=== PATIENT | male | born 1990 | race Caucasian/White ===

== ENCOUNTER 2018-02-01 14:52 | Emergency (ER) | payer OTHER, SELFPAY ==
[2018-02-01 15:42] LABS: Absolute Lymphocytes (CBC) 1.4 K/uL (0.7-4.9); Absolute Monocytes 0.4 K/uL (0.1-1.3); Absolute Neutrophil 5.8 K/uL (1.8-8.0); Basophils % 0.4 % (0-1.3); Eosinophils % 3.1 % (0-4.4); Hematocrit 41.2 % (39.6-49.0); Lymphocytes % 17.6 % (15.3-44.8); MCH 30.7 pg (27.0-35.0); MCV 89.7 fL (80-100); MPV 7.9 fL (7.6-11.3); RBC Red Blood Cell Count 4.59 M/uL (4.33-5.43)
[2018-02-01 15:56] LABS: ALT/SGPT 18 U/L (12-78); AST/SGOT 15 U/L (15-37); Albumin 3.7 g/dL (3.4-5.0); Alkaline Phosphatase 45 U/L (45-117); BUN Blood Urea Nitrogen 8 mg/dL (7-18); Bicarbonate 33 mmol/L (21-32); Bilirubin Direct < 0.1 mg/dL (0-0.2); Bilirubin Total 0.3 mg/dL (0.2-1.0); Glucose Level 89 mg/dL (74-106); Protein, Total 7.8 g/dL (6.4-8.2); Sodium Level 140 mmol/L (136-145)
--- NOTE | 2018-02-01 16:22 | ER ---
Nurse's Notes [facility] Name: Bipin Rubio Age: 27 yrs Sex: Male : 1990 Arrival Date: 02/01/2018 Time: 14:55 Bed 7 Private MD: Diagnosis: Chest pain, unspecified Presentation: 02/01 14:58 Presenting complaint: Patient states: I think my blood is bad, its causing it to hurt, sg c/o pain on the left side, reports does not radiate, reports it is not chest pain its my heart. Transition of care: patient was not received from another setting of care. Onset of symptoms was February 01, 2018. Risk Assessment: Do you want to hurt yourself or someone else? Patient reports no desire to harm self or others. Initial Sepsis Screen: Does the patient meet any 2 criteria? No. Patient's initial sepsis screen is negative. Does the patient have a suspected source of infection? No. Patient's initial sepsis screen is negative. Care prior to arrival: None. 14:58 Acuity: ROXANNE 3 sg 14:58 Method Of Arrival: Ambulatory sg Historical: - Allergies: 15:01 No Known Allergies; sg - Home Meds: 15:01 Depakote Oral [Active]; sg - PMHx: 15:01 Seizures; sg - PSHx: 15:01 None; sg - Immunization history:: Adult Immunizations not up to date. - Social history:: Smoking status: Patient/guardian denies using tobacco. - Ebola Screening: : Patient negative for fever greater than or equal to 101.5 degrees Fahrenheit, and additional compatible Ebola Virus Disease symptoms Patient denies exposure to infectious person Patient denies travel to an Ebola-affected area in the 21 days before illness onset No symptoms or risks identified at this time. Screenin:57 Abuse screen: Denies threats or abuse. Denies injuries from another. Nutritional ph screening: No deficits noted. Tuberculosis screening: No symptoms or risk factors identified. Fall Risk None identified. Assessment: 15:58 General: Appears in no apparent distress. comfortable, slender, Behavior is calm, ph cooperative, appropriate for age. Pain: Complains of pain in anterior aspect of left upper chest Pain does not radiate. Neuro: Level of Consciousness is awake, alert, obeys commands, Oriented to person, place, time, situation. Cardiovascular: Reports chest pain, nausea, shortness of breath, Denies palpitations, syncope, vomiting, Capillary refill < 3 seconds Patient's skin is warm and dry. Rhythm is regular. Respiratory: Airway is patent Respiratory effort is even, unlabored, Respiratory pattern is regular, symmetrical. GI: Reports nausea, Patient currently denies abdominal pain, diarrhea, vomiting. Derm: Skin is intact, is healthy with good turgor, Skin is pink, warm \T\ dry. Musculoskeletal: Circulation, motion, and sensation intact. Range of motion: limited in all extremities. Vital Signs: 15:00 BP 121 / 69; Pulse 55; Resp 17; Temp 99.0; Pulse Ox 99% on R/A; Weight 81.65 kg (R); sg Pain 10/10; 16:00 BP 124 / 78; Pulse 61; Resp 16; Pulse Ox 100% on R/A; ph ED Course: 14:55 Patient arrived in ED. sb2 14:58 Arm band placed on. sg 15:00 Triage completed. sg 15:08 Vijay Portillo NP is PHCP. pm1 15:08 Kailash Benavides MD is Attending Physician. pm1 15:20 Initial lab(s) drawn, by nc, sent to lab. Inserted saline lock: 20 gauge in right ph antecubital area, using aseptic technique. Blood collected. 15:30 EKG done, by geotechnical laboratory technician. reviewed by Vijay Portillo NP. sm3 15:38 X-ray completed. Portable x-ray completed in exam room. Patient tolerated procedure kp1 well. 15:39 XRAY Chest (1 view) In Process Unspecified. EDMS 15:57 Savanah Kimble, RN is Primary Nurse. ph 15:57 Patient has correct armband on for positive identification. Bed in low position. Call light in reach. Side rails up X 1. Pulse ox on. NIBP on. Warm blanket given. 17:39 No provider procedures requiring assistance completed. IV discontinued, intact, ss bleeding controlled, No redness/swelling at site. Pressure dressing applied. Administered Medications: No medications were administered Outcome: 16:21 Discharge ordered by . pm1 17:39 Discharged to home ambulatory. ss 17:39 Condition: good 17:39 Discharge instructions given to patient, Instructed on discharge instructions, follow up and referral plans. medication usage, Demonstrated understanding of instructions, follow-up care, medications. 17:40 Patient left the ED. ss Signatures: Dispatcher [employer] EDMS Seth Bella RN Nunu Barnes RN RN ss Hall, Patricia, RN RN Vijay Rivera, HOSPITAL SOCIAL WORKER HOSPITAL SOCIAL WORKER pm1 Brisa Vega kp1 Faith Nolasco sb2 Claudia Coto sm3
--- NOTE | 2018-02-01 16:22 | EDPHYS ---
Physician Documentation [facility] Name: Bipin Rubio Age: 27 yrs Sex: Male : 1990 Arrival Date: 02/01/2018 Time: 14:55 Bed 7 Private MD: ED Physician Kailash Benavides HPI: 02/01 15:29 This 27 yrs old Male presents to ER via Ambulatory with complaints of chest pm1 pain. 15:29 The patient or guardian reports chest pain that is located primarily in the anterior pm1 aspect of left upper chest. The pain does not radiate. Associated signs and symptoms: Pertinent positives: cough, Pertinent negatives: abdominal pain, diaphoresis, dizziness, headache, lower extremity pain, lower extremity swelling, lightheadedness, nausea, palpitations, shortness of breath, syncope, vomiting, Fever. The chest pain is described as aching. Modifying factors: The symptoms are alleviated by nothing. the symptoms are aggravated by nothing. The patient has experienced similar episodes in the past, chest pain ongoing for greater than 1 year. The patient has not recently seen a physician. Historical: - Allergies: 15:01 No Known Allergies; sg - Home Meds: 15:01 Depakote Oral [Active]; sg - PMHx: 15:01 Seizures; sg - PSHx: 15:01 None; sg - Immunization history:: Adult Immunizations not up to date. - Social history:: Smoking status: Patient/guardian denies using tobacco. - Ebola Screening: : Patient negative for fever greater than or equal to 101.5 degrees Fahrenheit, and additional compatible Ebola Virus Disease symptoms Patient denies exposure to infectious person Patient denies travel to an Ebola-affected area in the 21 days before illness onset No symptoms or risks identified at this time. ROS: 15:29 Constitutional: Negative for fever, chills, and weight loss, Eyes: Negative for injury, pm1 pain, redness, and discharge, ENT: Negative for injury, pain, and discharge, Neck: Negative for injury, pain, and swelling. 15:29 Respiratory: Negative for shortness of breath, cough, wheezing, and pleuritic chest pain, Abdomen/GI: Negative for abdominal pain, nausea, vomiting, diarrhea, and constipation, Back: Negative for injury and pain, MS/Extremity: Negative for injury and deformity, Skin: Negative for injury, rash, and discoloration, Neuro: Negative for headache, weakness, numbness, tingling, and seizure. 15:29 Cardiovascular: Positive for chest pain, Negative for edema, orthopnea, palpitations. 15:29 Psych: Positive for insomnia, Negative for anxiety, depression. pm1 Exam: 15:29 Constitutional: This is a well developed, well nourished patient who is awake, alert, pm1 and in no acute distress. Head/Face: Normocephalic, atraumatic. Eyes: Pupils equal round and reactive to light, extra-ocular motions intact. Lids and lashes normal. Conjunctiva and sclera are non-icteric and not injected. Cornea within normal limits. Periorbital areas with no swelling, redness, or edema. ENT: Nares patent. No nasal discharge, no septal abnormalities noted. Tympanic membranes are normal and external auditory canals are clear. Oropharynx with no redness, swelling, or masses, exudates, or evidence of obstruction, uvula midline. Mucous membranes moist. Neck: Trachea midline, no thyromegaly or masses palpated, and no cervical lymphadenopathy. Supple, full range of motion without nuchal rigidity, or vertebral point tenderness. No Meningismus. Chest/axilla: Normal chest wall appearance and motion. Nontender with no deformity. No lesions are appreciated. Cardiovascular: Regular rate and rhythm with a normal S1 and S2. No gallops, murmurs, or rubs. Normal PMI, no JVD. No pulse deficits. 15:29 Respiratory: Lungs have equal breath sounds bilaterally, clear to auscultation and percussion. No rales, rhonchi or wheezes noted. No increased work of breathing, no retractions or nasal flaring. Abdomen/GI: Soft, non-tender, with normal bowel sounds. No distension or tympany. No guarding or rebound. No evidence of tenderness throughout. Back: No spinal tenderness. No costovertebral tenderness. Full range of motion. Skin: Warm, dry with normal turgor. Normal color with no rashes, no lesions, and no evidence of cellulitis. MS/ Extremity: Pulses equal, no cyanosis. Neurovascular intact. Full, normal range of motion. 15:29 sinus bradycardia, sinus arrythmia 15:29 Neuro: Orientation: is normal, Motor: is normal. Vital Signs: 15:00 BP 121 / 69; Pulse 55; Resp 17; Temp 99.0; Pulse Ox 99% on R/A; Weight 81.65 kg (R); sg Pain 10/10; 16:00 BP 124 / 78; Pulse 61; Resp 16; Pulse Ox 100% on R/A; ph MDM: 15:09 Patient medically screened. pm1 15:29 Data reviewed: vital signs. Data interpreted: Pulse oximetry: on room air is 99 %. pm1 Interpretation: normal. 16:20 Counseling: I had a detailed discussion with the patient and/or guardian regarding: the pm1 historical points, exam findings, and any diagnostic results supporting the discharge/admit diagnosis, lab results, radiology results, the need for outpatient follow up, to return to the emergency department if symptoms worsen or persist or if there are any questions or concerns that arise at home. 02/01 15:18 Order name: Basic Metabolic Panel; Complete Time: 16:19 pm1 02/01 15:18 Order name: CBC with Diff; Complete Time: 16:19 pm1 02/01 15:18 Order name: LFT's; Complete Time: 16:19 pm1 02/01 15:18 Order name: Troponin (emerg Dept Use Only); Complete Time: 16:19 pm1 02/01 15:38 Order name: Urine Dipstick--Ancillary (enter results) em1 02/01 15:38 Order name: Urine Dipstick-Ancillary; Complete Time: 19:20 EDMS 02/01 15:18 Order name: XRAY Chest (1 view); Complete Time: 19:20 pm1 02/01 15:18 Order name: EKG; Complete Time: 15:19 pm1 02/01 15:18 Order name: Cardiac monitoring; Complete Time: 16:45 pm1 02/01 15:18 Order name: EKG - Nurse/Tech; Complete Time: 16:45 pm1 02/01 15:18 Order name: IV Saline Lock; Complete Time: 16:45 pm1 02/01 15:18 Order name: Labs collected and sent; Complete Time: 16:45 pm1 02/01 15:18 Order name: O2 Per Protocol; Complete Time: 16:45 pm1 02/01 15:18 Order name: O2 Sat Monitoring; Complete Time: 16:45 pm1 Administered Medications: No medications were administered Disposition: 18:33 Co-signature as Attending Physician, Kailash Benavides MD. rn Disposition: 02/01/18 16:21 Discharged to Home. Impression: Chest pain, unspecified. - Condition is Stable. - Discharge Instructions: Nonspecific Chest Pain. - Medication Reconciliation Form, Thank You Letter form. - Follow up: Emergency Department; When: As needed; Reason: Worsening of condition. Follow up: Private Physician; When: 2 - 3 days; Reason: Recheck today's complaints, Continuance of care, Re-evaluation by your physician. - Problem is new. - Symptoms have improved. Signatures: Dispatcher [employer] EDMS Seth Bella RN RN Kailash Benavides MD MD rn Smirch, Shelby, RN RN ss Vijay Portillo, [employer] DIRECTOR pm1 Corrections: (The following items were deleted from the chart) 17:40 16:21 02/01/2018 16:21 Discharged to Home. Impression: Chest pain, unspecified. ss Condition is Stable. Forms are Medication Reconciliation Form, Thank You Letter, Antibiotic Education, Prescription Opioid Use. Follow up: Emergency Department; When: As needed; Reason: Worsening of condition. Follow up: Private Physician; When: 2 - 3 days; Reason: Recheck today's complaints, Continuance of care, Re-evaluation by your physician. Problem is new. Symptoms have improved. pm1
[2018-02-01 17:19] LABS: Urine Blood NEGATIVE (NEG); Urine Glucose NEGATIVE (NEG); Urine Protein NEGATIVE (NEG)
--- NOTE | 2018-02-01 17:42 | RAD REPORT ---
EXAM DESCRIPTION: RAD - Chest Single View - 02/01/2018 3:43 pm CLINICAL HISTORY: Chest pain COMPARISON: None. TECHNIQUE: AP portable chest image was obtained 1530 hours . FINDINGS: Lungs are clear. Heart and vasculature are normal. No measurable pleural effusion and no p neumothorax. No gross bony abnormality seen. No acute aortic findings suspected. IMPRESSION: No acute cardiopulmonary process.
--- NOTE | 2018-02-01 18:44 | EKG ---
Test Date: 2018-02-01 Test Time: 15:24:36 Lead Miner Blasting: LETA MEASUREMENT RESULTS: Intervals: Rate: 55 NJ: 170 QRSD: 100 QT: 416 QTc: 397 [place]: P: 60 NJ: 170 QRS: 67 T: 54 INTERPRETIVE STATEMENTS: Sinus bradycardia with sinus arrhythmia Otherwise normal ECG No previous ECG available for comparison Electronically Signed On 02-01-18 18:43:02 CDT by Lorenzo Farooq
== END 2018-02-01 17:40 | disposition home or self-care (01) ==
LOC: ER 14:52
DX: R07.9 Chest pain, unspecified (principal)
CPT/HCPCS: 36415; 71045; 80048; 80076; 81003; 84484; 85025; 93005; 99284

== ENCOUNTER 2018-02-03 15:46 | Emergency (ER) | payer OTHER, SELFPAY ==
[2018-02-03 16:14] LABS: Absolute Lymphocytes (CBC) 1.5 K/uL (0.7-4.9); Absolute Monocytes 0.6 K/uL (0.1-1.3); Absolute Neutrophil 5.5 K/uL (1.8-8.0); Basophils % 0.6 % (0-1.3); Eosinophils % 4.4 % (0-4.4); Hematocrit 42.2 % (39.6-49.0); MCV 88.8 fL (80-100); MPV 7.7 fL (7.6-11.3); Monocytes % 7.1 % (3.3-12.3); RBC Red Blood Cell Count 4.75 M/uL (4.33-5.43)
[2018-02-03 16:34] LABS: BUN Blood Urea Nitrogen 11 mg/dL (7-18); Bicarbonate 31 mmol/L (21-32); Glucose Level 123 mg/dL (74-106); Potassium 3.8 mmol/L (3.5-5.1); Sodium Level 141 mmol/L (136-145)
--- NOTE | 2018-02-03 16:46 | RAD REPORT ---
EXAM DESCRIPTION: [place] Single View02/03/2018 4:34 pm CLINICAL HISTORY: Chest pain COMPARISON: February 01 2018 FINDINGS: The lungs appear clear of acute infiltrate. The heart is normal size IMPRESSION: No acute abnormalities displayed
--- NOTE | 2018-02-03 16:49 | ER ---
Nurse's Notes [facility] Name: Bipin Rubio Age: 27 yrs Sex: Male : 1990 Arrival Date: 02/03/2018 Time: 15:49 Bed 14 Private MD: None, None Diagnosis: Chest pain, unspecified Presentation: 02/03 15:51 Presenting complaint: Patient states: earlier today, i felt pain on my chest, it was hj pounding; denies SOB; reports sharp pain 6/10; denies nausea and vomiting; non radiating pain;. Transition of care: patient was not received from another setting of care. Onset of symptoms was February 03, 2018. Risk Assessment: Do you want to hurt yourself or someone else? Patient reports no desire to harm self or others. Initial Sepsis Screen: Does the patient meet any 2 criteria? No. Patient's initial sepsis screen is negative. Does the patient have a suspected source of infection? No. Patient's initial sepsis screen is negative. Care prior to arrival: None. 15:51 Method Of Arrival: Ambulatory 15:51 Acuity: ROXANNE 3 hj Triage Assessment: 15:54 General: Appears in no apparent distress. uncomfortable, Behavior is calm, cooperative, hj appropriate for age. Pain: Complains of pain in chest. Cardiovascular: Capillary refill < 3 seconds Patient's skin is warm and dry. Historical: - Allergies: 15:53 No Known Allergies; hj - Home Meds: 15:53 Depakote Oral [Active]; hj - PMHx: 15:53 Seizures; hj - PSHx: 15:53 None; hj - Immunization history:: Adult Immunizations unknown. - Social history:: Smoking status: Patient uses tobacco products, smokes one pack cigarettes per day. Patient/guardian denies using alcohol. - Ebola Screening: : Patient negative for fever greater than or equal to 101.5 degrees Fahrenheit, and additional compatible Ebola Virus Disease symptoms Patient denies exposure to infectious person Patient denies travel to an Ebola-affected area in the 21 days before illness onset. Screenin:54 Abuse screen: Denies threats or abuse. Denies injuries from another. Nutritional hj screening: No deficits noted. Tuberculosis screening: No symptoms or risk factors identified. Fall Risk None identified. Assessment: 15:54 Pain: Pain does not radiate. Pain began 4 hours ago. hj 16:01 General: Appears in no apparent distress. slender, unkempt, Behavior is calm, tl3 cooperative, appropriate for age. Pain: Complains of pain in chest. Neuro: Level of Consciousness is awake, alert, obeys commands, confused, Oriented to person, place, time, situation, Appropriate for age. Cardiovascular: Reports he was seen here on the 5th and was told to follow up n two to three days, today makes two days and he is still having intermittent pain. Respiratory: Airway is patent Respiratory effort is even, unlabored, Respiratory pattern is regular, symmetrical. GI: No signs and/or symptoms were reported involving the gastrointestinal system. : No signs and/or symptoms were reported regarding the genitourinary system. EENT: No signs and/or symptoms were reported regarding the EENT system. 16:56 Reassessment: Patient appears in no apparent distress at this time. No changes from tl3 previously documented assessment. Patient and/or family updated on plan of care and expected duration. Pain level reassessed. Patient is alert, oriented x 3, equal unlabored respirations, skin warm/dry/pink. Vital Signs: 15:55 BP 123 / 82; Pulse 80; Resp 18; Temp 98.1(O); Pulse Ox 99% on R/A; Weight 77.11 kg; hj Height 6 ft. 2 in. (187.96 cm); Pain 6/10; 16:01 BP 120 / 78; Pulse 90; Resp 18; Pulse Ox 100% ; tl3 16:56 BP 116 / 73; Pulse 52; Resp 18; Pulse Ox 97% on R/A; tl3 15:55 Body Mass Index 21.83 (77.11 kg, 187.96 cm) ED Course: 15:49 Patient arrived in ED. mr 15:49 None, None is Private Physician. mr 15:53 Triage completed. hj 15:54 Arm band placed on left wrist. hj 15:54 print finishing worker on. Pulse ox on. NIBP on. hj 15:54 Patient maintains SpO2 saturation greater than 95% on room air. hj 15:56 Vijay Portillo NP is PHCP. pm1 15:56 Romain Matson MD is Attending Physician. pm1 15:56 Patient has correct armband on for positive identification. Placed in gown. Bed in low hj position. Call light in reach. Side rails up X 1. 15:59 Coby Rm, RN is Primary Nurse. tl3 16:01 Resting quietly. tl3 16:01 No provider procedures requiring assistance completed. Inserted saline lock: 20 gauge tl3 in right forearm, using aseptic technique. 16:20 Basic Metabolic Panel Sent. tl3 16:35 XRAY Chest (1 view) In Process Unspecified. EDMS 16:56 IV discontinued, intact, bleeding controlled, No redness/swelling at site. Pressure tl3 dressing applied. Administered Medications: No medications were administered Outcome: 16:48 Discharge ordered by MD. pm1 16:56 Discharged to home ambulatory. tl3 16:56 Condition: good 16:56 Discharge instructions given to patient, Instructed on discharge instructions, follow up and referral plans. Demonstrated understanding of instructions, follow-up care. 16:58 Patient left the ED. tl3 Signatures: Dispatcher [employer] EDAZ Jade Haider Henry, RN RN Vijay Portillo, TELE GROUT SEWER LINE REPAIRER TELE GROUT SEWER LINE REPAIRER pm1 Coby Rm, RN RN tl3 Corrections: (The following items were deleted from the chart) 15:56 15:55 Pulse 80bpm; Resp 18bpm; Pulse Ox 99% RA; Temp 98.1F Oral; 77.11 kg; Height 6 ft. hj 2 in.; BMI: 21.8; Pain 6/10; hj
--- NOTE | 2018-02-03 16:49 | EDPHYS ---
Physician Documentation [facility] Name: Bipin Rubio Age: 27 yrs Sex: Male : 1990 Arrival Date: 02/03/2018 Time: 15:49 Bed 14 Private MD: None, None ED Physician Romain Matson HPI: 02/03 16:10 This 27 yrs old Male presents to ER via Ambulatory with complaints of Chest pm1 Pain. 16:10 The patient or guardian reports chest pain that is located primarily in the anterior pm1 aspect of left upper chest. The pain does not radiate. Associated signs and symptoms: Pertinent positives: cough, Pertinent negatives: abdominal pain, diaphoresis, dizziness, headache, lightheadedness, nausea, shortness of breath, vomiting. The chest pain is described as aching. Duration: The patient or guardian reports a single episode, that is now resolved, onset and resolution 4 hours ago. Patient reports daily chest pain for the past 1 year. Modifying factors: The symptoms are alleviated by nothing. the symptoms are aggravated by nothing. Severity of pain: in the emergency department the pain has resolved. The patient has been recently seen at the [facility] Emergency Department, 2 days ago for the same complaint. Discharged home. Historical: - Allergies: 15:53 No Known Allergies; hj - Home Meds: 15:53 Depakote Oral [Active]; hj - PMHx: 15:53 Seizures; hj - PSHx: 15:53 None; hj - Immunization history:: Adult Immunizations unknown. - Social history:: Smoking status: Patient uses tobacco products, smokes one pack cigarettes per day. Patient/guardian denies using alcohol. - Ebola Screening: : Patient negative for fever greater than or equal to 101.5 degrees Fahrenheit, and additional compatible Ebola Virus Disease symptoms Patient denies exposure to infectious person Patient denies travel to an Ebola-affected area in the 21 days before illness onset. ROS: 16:10 Constitutional: Negative for fever, chills, and weight loss, Eyes: Negative for injury, pm1 pain, redness, and discharge, ENT: Negative for injury, pain, and discharge, Neck: Negative for injury, pain, and swelling. 16:10 Abdomen/GI: Negative for abdominal pain, nausea, vomiting, diarrhea, and constipation, Back: Negative for injury and pain, : Negative for injury, bleeding, discharge, and swelling, MS/Extremity: Negative for injury and deformity, Skin: Negative for injury, rash, and discoloration, Neuro: Negative for headache, weakness, numbness, tingling, and seizure. 16:10 Cardiovascular: Positive for chest pain, Negative for edema, orthopnea. 16:10 Respiratory: Positive for cough, Negative for shortness of breath, sputum production, wheezing. Exam: 16:10 Head/Face: Normocephalic, atraumatic. Eyes: Pupils equal round and reactive to light, pm1 extra-ocular motions intact. Lids and lashes normal. Conjunctiva and sclera are non-icteric and not injected. Cornea within normal limits. Periorbital areas with no swelling, redness, or edema. ENT: Nares patent. No nasal discharge, no septal abnormalities noted. Tympanic membranes are normal and external auditory canals are clear. Oropharynx with no redness, swelling, or masses, exudates, or evidence of obstruction, uvula midline. Mucous membranes moist. Neck: Trachea midline, no thyromegaly or masses palpated, and no cervical lymphadenopathy. Supple, full range of motion without nuchal rigidity, or vertebral point tenderness. No Meningismus. Chest/axilla: Normal chest wall appearance and motion. Nontender with no deformity. No lesions are appreciated. Cardiovascular: Regular rate and rhythm with a normal S1 and S2. No gallops, murmurs, or rubs. Normal PMI, no JVD. No pulse deficits. Respiratory: Lungs have equal breath sounds bilaterally, clear to auscultation and percussion. No rales, rhonchi or wheezes noted. No increased work of breathing, no retractions or nasal flaring. Abdomen/GI: Soft, non-tender, with normal bowel sounds. No distension or tympany. No guarding or rebound. No evidence of tenderness throughout. Back: No spinal tenderness. No costovertebral tenderness. Full range of motion. Skin: Warm, dry with normal turgor. Normal color with no rashes, no lesions, and no evidence of cellulitis. MS/ Extremity: Pulses equal, no cyanosis. Neurovascular intact. Full, normal range of motion. 16:10 Constitutional: The patient appears in no acute distress, alert, awake, comfortable, non-diaphoretic, non-toxic, well developed, well hydrated, well nourished, unkempt. 16:10 Neuro: Orientation: is normal, Motor: strength is normal, strength is 5/5 in all extremities, Gait: is steady, at a normal pace, without difficulty. Vital Signs: 15:55 BP 123 / 82; Pulse 80; Resp 18; Temp 98.1(O); Pulse Ox 99% on R/A; Weight 77.11 kg; hj Height 6 ft. 2 in. (187.96 cm); Pain 6/10; 16:01 BP 120 / 78; Pulse 90; Resp 18; Pulse Ox 100% ; tl3 16:56 BP 116 / 73; Pulse 52; Resp 18; Pulse Ox 97% on R/A; tl3 15:55 Body Mass Index 21.83 (77.11 kg, 187.96 cm) hj MDM: 15:57 Patient medically screened. [facility] 16:47 Data reviewed: vital signs. Data interpreted: Pulse oximetry: on room air is 100 %. pm1 Interpretation: normal. Counseling: I had a detailed discussion with the patient and/or guardian regarding: the historical points, exam findings, and any diagnostic results supporting the discharge/admit diagnosis, lab results, radiology results, the need for outpatient follow up, to return to the emergency department if symptoms worsen or persist or if there are any questions or concerns that arise at home. 16:47 PHILIP Risk Score: TOTAL SCORE = 0. pm1 02/03 16:04 Order name: Basic Metabolic Panel pm1 02/03 16:04 Order name: CBC with Diff; Complete Time: 16:47 pm1 02/03 16:04 Order name: Troponin (emerg Dept Use Only); Complete Time: 16:47 pm1 02/03 16:04 Order name: XRAY Chest (1 view); Complete Time: 16:47 pm1 07 16:04 Order name: EKG; Complete Time: 16:05 pm1 02/03 16:05 Order name: Basic Metabolic Panel; Complete Time: 16:47 EDMS 02/03 16:04 Order name: EKG - Nurse/Tech; Complete Time: 16:06 pm1 02/03 16:04 Order name: IV Saline Lock; Complete Time: 16:06 pm1 02/03 16:04 Order name: Labs collected and sent; Complete Time: 16:06 pm1 Administered Medications: No medications were administered Disposition: 02/03/18 16:48 Discharged to Home. Impression: Chest pain, unspecified. - Condition is Stable. - Discharge Instructions: Nonspecific Chest Pain. - Medication Reconciliation Form, Thank You Letter form. - Follow up: Emergency Department; When: As needed; Reason: Worsening of condition. Follow up: Private Physician; When: 5 - 6 days; Reason: Recheck today's complaints, Continuance of care, Re-evaluation by your physician. - Problem is new. - Symptoms have improved. Addendum: 02/05/2018 09:21 Co-signature as Attending Physician, Romain Matson MD I agree with the assessment and c gauthier plan of care. Signatures: Dispatcher [employer] EDNC Romain Matson MD MD cha Joaquin, Henry, RN RN hj Vijay Portillo, BOILING HOUSE HAND BOILING HOUSE HAND pm1 Coby Rm RN RN tl3 Corrections: (The following items were deleted from the chart) 02/03 16:58 16:48 02/03/2018 16:48 Discharged to Home. Impression: Chest pain, unspecified. tl3 Condition is Stable. Forms are Medication Reconciliation Form, Thank You Letter, Antibiotic Education, Prescription Opioid Use. Follow up: Emergency Department; When: As needed; Reason: Worsening of condition. Follow up: Private Physician; When: 5 - 6 days; Reason: Recheck today's complaints, Continuance of care, Re-evaluation by your physician. Problem is new. Symptoms have improved. pm1
--- NOTE | 2018-02-04 10:55 | EKG ---
Test Date: 2018-02-03 Test Time: 16:01:51 Manager Oncology: MG MEASUREMENT RESULTS: Intervals: Rate: 67 [place]: 162 QRSD: 106 QT: 404 QTc: 426 Spencer: P: 57 [place]: 162 QRS: 59 T: 45 INTERPRETIVE STATEMENTS: Normal sinus rhythm Incomplete right bundle branch block Borderline ECG Compared to ECG 02/01/2018 15:24:36 Sinus bradycardia no longer present Electronically Signed On 02-04-18 10:55:19 CDT by Lorenzo Farooq
== END 2018-02-03 16:58 | disposition home or self-care (01) ==
LOC: ER 15:46
DX: R07.9 Chest pain, unspecified (principal); G40.909 Epilepsy, unspecified, not intractable, without status epilepticus
CPT/HCPCS: 36415; 71045; 80048; 84484; 85025; 93005; 99285